=== PATIENT | female | born 1965 | race Caucasian/White ===

== ENCOUNTER 2023-09-16 08:50 | Outpatient (OUT) | payer OTHER, SELFPAY ==
[2023-09-16 10:10] LABS: Basophils Absolute Auto 0.1 10^3/uL (0.0-0.1); Basophils Percent Auto 1.4 % (0.2-2.0); Eosinophils Absolute Auto 0.2 10^3/uL (0.0-0.7); Eosinophils Percent Auto 4.8 % (0.9-7.0); Hematocrit 39.2 % (36.0-48.0); Hemoglobin 13.2 g/dL (12.0-16.0); Immature Granulocytes Abs Auto 0.01 10^3/uL (0.00-0.03); Immature Granulocytes Pct Auto 0.2 % (0.0-0.5); Lymphocytes Absolute Auto 1.8 10^3/uL (1.2-3.8); Lymphocytes Percent Auto 41.6 % (20.5-60.0); Mean Corpuscular HGB Conc 33.7 g/dL (29.9-35.2); Mean Corpuscular Hemoglobin 30.4 pg (26.7-34.0); Mean Corpuscular Volume 90.3 fL (81.0-99.0); Mean Platelet Volume 9.6 fL (9.5-13.5); Monocytes Absolute Auto 0.3 10^3/uL (0.3-0.8); Monocytes Percent Auto 7.5 % (1.7-12.0); Neutrophils Percent Auto 44.5 % (43.0-75.0); Platelet Count 267 10^3/uL (150-450); Red Blood Count 4.34 10^6/uL (4.20-5.40); Red Cell Distribution Width 12.3 % (11.0-15.0); White Blood Count 4.4 10^3/uL (4.0-11.0)
[2023-09-16 10:56] LABS: Estimated Average Glucose 108 mg/dL; Glycohemoglobin A1C 5.4 % (4.5-6.2)
[2023-09-16 11:16] LABS: Alanine Aminotransferase 20 U/L (14-59); Albumin Globulin Ratio 1.3; Albumin Level 3.9 g/dL (3.4-5.0); Alkaline Phosphatase 72 U/L (46-116); Anion Gap 11.8; Aspartate Amino Transferase 15 U/L (15-37); BUN Creatinine Ratio 20.5; Bilirubin Total 0.5 mg/dL (0.2-1.0); Carbon Dioxide 28.6 mmol/L (21.0-32.0); Chloride 105 mmol/L (98-107); Chol HDL Ratio 2.6; Cholesterol 235 mg/dL (<=200); Estimated GFR (African America >60 (>=60); Estimated GFR (Non-African Ame >60 (>=60); Free T3 2.83 pg/mL (2.18-3.98); Globulin 2.9 g/dL; Glucose 97 mg/dL (74-106); HDL Cholesterol 91 mg/dL (40-60); Potassium 4.4 mmol/L (3.5-5.1); Sodium 141 mmol/L (136-145); Thyroid Stimulating Hormone 2.688 uIU/mL (0.358-3.740); Total Protein 6.8 g/dL (6.4-8.2)
[2023-09-16 12:27] LABS: Triglycerides 46 mg/dL (<=150); VLDL CHOLESTEROL 9.2 mg/dL
== END 2023-09-16 08:51 | disposition home or self-care (01) ==
LOC: LAB 08:51
PROVIDERS: PCP Family Medicine; Visit Provider Family Medicine
DX: Z00.00 Encounter for general adult medical examination without abnormal findings (principal)
CPT/HCPCS: 36415; 80053; 80061; 83036; 84436; 84443; 84481; 85025

== ENCOUNTER 2023-09-19 16:19 | Outpatient (OUT) | payer OTHER, SELFPAY ==
--- NOTE | 2023-09-19 | XR_ITS ---
The [address] [address] Patient Name: MANASA CERDA MRN: [id number] date: 1965 Sex: F Assigned Patient Location: [facility] Current Patient Location: LAB Accession/Order Number: [id number] Exam Date: 09/19/2023 16:31 Report Date: 09/21/2023 06:37 At the request of: TONE LEWIS Procedure: XR ribs LT 2V EXAMINATION: XR ribs LT 2V HISTORY: Z04.3; Encounter for exam following other injury ; acute lower left rib pain COMPARISON: No relevant comparison available. FINDINGS: LUNGS: No significant pulmonary parenchymal abnormalities. PLEURA: No pneumothorax, effusion, or pleural thickening. MEDIASTINUM: No visible mass or adenopathy. CARDIAC: No cardiomegaly or cardiac silhouette abnormality. RIBS: Normal. No significant arthropathy or acute abnormality. OTHER: Negative. XR/XR ribs LT 2V IMPRESSION: 1. No acute cardiopulmonary process. 2. No appreciable rib abnormality. Electronically authenticated by: EDWARD HODGSON Date: 09/21/2023 06:37
== END 2023-09-19 16:20 | disposition home or self-care (01) ==
LOC: RAD 16:22
PROVIDERS: PCP Family Medicine; Visit Provider Family Medicine
DX: Z04.3 Encounter for examination and observation following other accident (principal); R07.81 Pleurodynia
CPT/HCPCS: 71100

== ENCOUNTER 2023-09-21 16:50 | Emergency (ER) | payer OTHER, SELFPAY ==
[2023-09-21 16:55] VITALS: BP 151/93; PULSE 95; TEMP 36.6; O2SAT 99; BMI 22.3
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
== END 2023-09-21 17:36 | disposition home or self-care (01) ==
PROVIDERS: Emergency Provider Emergency Medicine Emergency Medical Services; PCP Family Medicine
DX: S29.8XXA Other specified injuries of thorax, initial encounter (principal); W18.39XA Other fall on same level, initial encounter; Y93.83 Activity, rough housing and horseplay
CPT/HCPCS: 99283

== ENCOUNTER 2024-07-02 06:54 | Outpatient (OUT) | payer OTHER, SELFPAY | END 2024-07-02 06:55 | disposition home or self-care (01) | LOC: CARD 06:56 | PROVIDERS: PCP Family Medicine; Visit Provider Nurse Practitioner Family | DX: I49.9 Cardiac arrhythmia, unspecified (principal); R00.2 Palpitations; Z82.41 Family history of sudden cardiac death | CPT/HCPCS: 93306 ==